=== PATIENT | female | born 1980 | race African-American/Black ===

== ENCOUNTER 2018-09-24 17:39 | Emergency (ER) | payer BC ==
[2018-09-24 18:25] LABS: #Lymphocytes 1.5 thou/uL (1.20-3.40); #Monocytes 0.7 thou/uL (0.11-0.59); %Basophils 0.2 % (0.0-1.0); %Eosinophils 0.2 % (0.0-10.0); %Lymphocytes 18.3 % (21.0-51.0); %Monocytes 8.4 % (0.0-10.0); Hemoglobin 12.2 g/dL (12.0-16.0); Mean Corpuscular Hemoglobin 26.2 pg (27.0-31.0); Mean Corpuscular Volume 79.4 fL (78.0-98.0); Mean Platelet Volume 7.4 fL (7.4-10.4); Platelet Count 251 thou/uL (130-400); RBC Distribution Width 12.3 % (11.5-14.5); Red Blood Cell (RBC) Count 4.65 mill/uL (4.20-5.40); White Blood Cell (WBC) Count 8.2 thou/uL (4.8-10.8)
[2018-09-24] MEDS ORDERED: Cyclobenzaprine 10 MG TAB ONE (18:41)
[2018-09-24] MEDS ORDERED: Ketorolac Tromethamine 30 MG/ML VIAL ONE (18:41)
[2018-09-24 18:45] LABS: ALT (SGPT) 15 U/L (8-55); AST (SGOT) 19 U/L (5-34); Albumin 3.6 g/dL (3.5-5.0); Alkaline Phosphatase 95 U/L (40-150); Anion Gap 11 mmol/L (10-20); BUN (Urea Nitrogen) 8 mg/dL (7.0-18.7); Bilirubin, Total 0.5 mg/dL (0.2-1.2); Calc. Creatinine Clearance 0 mL/min (70-130); Carbon Dioxide 19 mmol/L (22-29); Chloride 107 mmol/L (98-107); Estimated GFR-MDRD Greater than 90; Globulin 4.5 g/dL (2.4-3.5); Glucose 118 mg/dL (70-105); Potassium 3.7 mmol/L (3.5-5.1); Protein, Total 8.1 g/dL (6.0-8.3); Sodium 133 mmol/L (136-145)
[2018-09-24 18:51] LABS: Bilirubin Negative (Negative); Blood, Urine 1+ (Negative); Clarity Turbid (Clear); Glucose, Urine (Dipstick) Normal (Negative); Leukocyte 250 Leu/uL (Negative); Nitrite Negative (Negative); Protein, Urine (Dipstick) Negative (Neg-Trace); Urobilinogen Normal mg/dL (Less than 2)
[2018-09-24 18:54] LABS: Pregnancy Test - Urine (BHCG) Negative (Negative); Pregu Control Background? CLEAR/WHITE (CLR/WHITE); Pregu Control Bar Appear? YES (CONTROL BAR); Specific Gravity 1.011 (1.002-1.036)
[2018-09-24 19:00] LABS: Bacteria/HPF 2+ HPF (None Seen)
--- NOTE | 2018-09-24 21:56 | MRI ---
LUMBAR SPINE MRI WITH AND WITHOUT CONTRAST: 09/24/18 COMPARISON: None. HISTORY: Fever and back pain. Evaluate for abscess. TECHNIQUE: Multiplanar and multisequence MR imaging of the lumbar spine obtained with and without contrast. FINDINGS: The sagittal STIR imaging demonstrates no focal area of osseous marrow edema. No anterolisthesis or retrolisthesis is noted within the lumbar spine. On the basis of five lumbar type vertebral bodies, the conus medullaris terminates at the L1 level. T12-L1: Unremarkable. L1-2: Unremarkable. L2-3: Unremarkable. L3-4: Unremarkable. L4-5: Unremarkable. L5-S1: Unremarkable. The visualized retroperitoneal structures appear grossly unremarkable. Postcontrast imaging is unrema rkable. IMPRESSION: Unremarkable MRI lumbar spine with and without contrast. POS: OFF
--- NOTE | 2018-09-24 22:06 | MRI ---
THORACIC SPINE MRI WITH AND WITHOUT CONTRAST: 09/24/18 COMPARISON: None. HISTORY: Fever and pain, assess for abscess. TECHNIQUE: Multiplanar and multisequence MR imaging of the thoracic spine with and without contrast. FINDINGS: the sagittal STIR imaging demonstrates no focal area of osseous marrow edema. There is no thoracic sp ine anterolisthesis of retrolisthesis noted. Tiny central disc protrusions are noted at T3-4 and T4-5. There is no significant central canal steno sis within the thoracic spine. The thoracic cord demonstrates normal signal intensity. There is no si gnificant neural foraminal stenosis on either side at any level within the thoracic spine. Postcontrast imaging demonstrates no abnormal enhancement. No evidence for epidural abscess. IMPRESSION: Grossly unremarkable contrast enhanced thoracic spine MRI. POS: OFF
--- NOTE | 2018-09-24 22:12 | MRI ---
CERVICAL SPINE MRI WITH AND WITHOUT CONTRAST: 09/24/18 COMPARISON: None. HISTORY: Pain, fever. TECHNIQUE: Multiplanar and multisequence MR imaging of the cervical spine provided with and without contrast. FINDINGS: The sagittal STIR imaging demonstrates no focal area of osseous marrow edema. No anterolisthesis or retrolisthesis noted within the cervical spine. C2-3: Unremarkable. C3-4: Unremarkable. C4-5: Unremarkable. C5-6: Unremarkable. C6-7: Unremarkable. C7-T1: Unremarkable. There is no focal area of abnormal signal intensity identified within the cervical cord. The postcont rast imaging demonstrates no abnormal enhancement within the cervical spine. IMPRESSION: Unremarkable contrast enhanced cervical spine MRI. POS: OFF
== END 2018-09-24 22:40 | disposition home or self-care (01) ==
LOC: ERS 17:39
DX: M54.5 Low back pain (principal)
CPT/HCPCS: 72156; 72157; 72158; 80053; 81003; 81015; 81025; 85025; 85652; 86140; 96374; J1885